=== PATIENT | female | born 1975 | race American Indian/Alaskan Native ===

== ENCOUNTER 2017-01-24 23:19 | Emergency (ER) | payer OTHER ==
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
[2017-01-25] MEDS ORDERED: NORCO 10/325 PO ONE (01:33)
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
[2017-01-25 04:52] VITALS: BP 120/72
--- NOTE | 2017-01-25 09:59 | XRay Report ---
X-RAY RIGHT KNEE THREE VIEWS: 01/24/17 23:19:00 CLINICAL: Pain FINDINGS: Normal bones, joints and soft tissues. No fracture or dislocation. No joint effusion. IMPRESSION: Normal.
== END 2017-01-25 04:45 | disposition home or self-care (01) ==
LOC: ED 23:19
DX: S00.83XA Contusion of other part of head, initial encounter (principal); S80.01XA Contusion of right knee, initial encounter; I10 Essential (primary) hypertension; Z87.891 Personal history of nicotine dependence; V43.52XA Car driver injured in collision with other type car in traffic accident, initial encounter; Y92.488 Other paved roadways as the place of occurrence of the external cause; Y93.89 Activity, other specified; Y99.8 Other external cause status
CPT/HCPCS: 70486; 81025